=== PATIENT | female | born 1985 | race Hispanic/Latino ===

== ENCOUNTER 2016-12-03 20:02 | Inpatient (IN) | payer MEDICAID ==
[2016-12-03 20:02] VITALS: BMI 41.9
[2016-12-03 20:54] LABS: BASO % 0.3 % (0.0-2.0); CHLORIDE 104 mmol/L (98-107); EOS # 0.3 K/uL (0.0-0.7); EOS % 2.7 % (0.0-4.0); HEMATOCRIT 40.7 % (34.0-47.0); LYMPH # 2.6 K/uL (1.0-4.3); LYMPH % 25.7 % (20.0-40.0); MEAN CELL VOLUME 85.5 fL (81.0-99.0); MEAN CORPUSCULAR HEMOGLOBIN 29.2 pg (27.0-31.0); MEAN CORPUSCULAR HGB CONC 34.1 g/dL (33.0-37.0); MEAN PLATELET VOLUME 10.2 fL (7.2-11.7); MONO # 0.6 K/uL (0.0-0.8); MONO % 5.5 % (0.0-10.0); NRBC % 0.1 % (0.0-2.0); RED CELL DISTRIBUTION WIDTH 13.3 % (11.5-14.5)
[2016-12-03 20:55] LABS: SODIUM 145 mmol/L (132-148)
[2016-12-03 20:56] LABS: POTASSIUM 3.5 mmol/L (3.6-5.2)
[2016-12-03 20:57] LABS: GFR AFRICAN-AMERICAN > 60
[2016-12-03 20:58] LABS: ALB/GLOB RATIO 1.4 (1.0-2.1); ALKALINE PHOSPHATASE 48 U/L (38-126); ALT/SGPT 21 U/L (9-52); AST/SGOT 16 U/L (14-36); BILIRUBIN,TOTAL 0.6 mg/dL (0.2-1.3); BLOOD UREA NITROGEN 10 mg/dL (7-17); CARBON DIOXIDE 22 mmol/L (22-30); GLUCOSE,RANDOM 116 mg/dL (65-105); TOTAL PROTEIN 7.5 g/dL (6.3-8.3)
[2016-12-03 20:59] LABS: ALCOHOL SERUM < 10 mg/dl (0-10); RBC URINE 4 /hpf (0-3); URINE BACTERIA OCC (<OCC); URINE BILIRUBIN NEGATIVE (NEGATIVE); URINE BLOOD NEGATIVE (NEGATIVE); URINE COLOR Amber (YELLOW); URINE GLUCOSE (UA) NORMAL (Normal); URINE KETONE TRACE mg/dL (NEGATIVE); URINE LEUKOCYTE ESTERASE NEG Leu/uL (Negative); URINE PROTEIN 1+ mg/dL (NEGATIVE); URINE UROBILINOGEN NORMAL mg/dL (0.2-1.0); WBC URINE 4 /hpf (0-5)
--- NOTE | 2016-12-03 21:22 | C.PDOC ---
History Of Present Illness A 31 year old female, whose past medical history includes anxiety, bipolar disorder, and hypothyroidism, presents to the emergency department for heroin detox. Time Seen by Provider: 12/03/16 20:20 Chief Complaint (Nursing): Psychiatric Evaluation Past Medical History Vital Signs: Last Vital Signs Temp 98.5 F 12/03/16 22:50 Pulse 77 12/03/16 22:50 Resp 18 12/03/16 22:50 BP 131/81 12/03/16 22:50 Pulse Ox 99 12/03/16 22:50 - Medical History PMH: Anxiety, Bipolar Disorder (according to [facility] report), Hypothyroidism Denies: Depression, Diabetes, Hepatitis, HIV, HTN, Chronic Kidney Disease, Seizures, Sexually Transmitted Disease Surgical History: Appendectomy - [facility] Procedures DRESSING OF WOUND NEC (11/24/99) EXTERNAL EAR INCIS NEC (11/23/99) INJECT/INFUSE NEC (07/06/12) LOCAL EXCIS SM BOWEL NEC (04/19/98) OTHER APPENDECTOMY (04/19/98) OTHER GROUP THERAPY (08/23/13) TETANUS TOXOID ADMINIST (09/02/04) Family History: States: No Known Family Hx - Social History Hx Tobacco Use: No (Hx) Hx Alcohol Use: No Hx Substance Use: Yes - Immunization History Hx Tetanus Toxoid Vaccination: No Hx Influenza Vaccination: No Hx Pneumococcal Vaccination: No ED Course And Treatment - Laboratory Results Result Diagrams: 12/03/16 20:43 12/03/16 20:43 O2 Sat by Pulse Oximetry: 98 Medical Decision Making Medical Decision Making: Treatment Plan: Progress Notes: Disposition Doctor Will See Patient In The: Hospital Counseled Patient/Family Regarding: Studies Performed, Diagnosis - Disposition Disposition: HOSPITALIZED Disposition Time: 22:03 Condition: GOOD - Clinical Impression Clinical Impression: Heroin abuse - Scribe Statement The provider has reviewed the documentation as recorded by the Scribe Honey Mackey All medical record entries made by the Geoffibe were at my direction and personally dictated by me. I have reviewed the chart and agree that the record accurately reflects my personal performance of the history, physical exam, medical decision making, and the department course for this patient. I have also personally directed, reviewed, and agree with the discharge instructions and disposition.
--- NOTE | 2016-12-03 22:00 | C.PDOC ---
Time Seen by Provider: 12/03/16 20:20 Chief Complaint (Nursing): Psychiatric Evaluation Past Medical History Reviewed: Historical Data, Nursing Documentation, Vital Signs Vital Signs: Last Vital Signs Temp 98.5 F 12/03/16 22:50 Pulse 77 12/03/16 22:50 Resp 18 12/03/16 22:50 BP 131/81 12/03/16 22:50 Pulse Ox 98 12/04/16 00:38 - Medical History PMH: Anxiety, Bipolar Disorder ([facility]), Hypothyroidism Denies: Depression, Diabetes, Hepatitis, HIV, HTN, Chronic Kidney Disease, Seizures, Sexually Transmitted Disease Surgical History: Appendectomy - [facility] Procedures DRESSING OF WOUND NEC (11/24/99) EXTERNAL EAR INCIS NEC (11/23/99) INJECT/INFUSE NEC (07/06/12) LOCAL EXCIS SM BOWEL NEC (04/19/98) OTHER APPENDECTOMY (04/19/98) OTHER GROUP THERAPY (08/23/13) TETANUS TOXOID ADMINIST (09/02/04) Family History: States: No Known Family Hx - Social History Hx Tobacco Use: No (Hx) Hx Alcohol Use: No Hx Substance Use: Yes - Immunization History Hx Tetanus Toxoid Vaccination: No Hx Influenza Vaccination: No Hx Pneumococcal Vaccination: No ED Course And Treatment - Laboratory Results Result Diagrams: 12/03/16 20:43 12/03/16 20:43 Lab Interpretation: Abnormal (tox + opiates/cocaine) Urine POC: Negative O2 Sat by Pulse Oximetry: 98 Reevaluation Time: 22:00 Reassessment Condition: Improved Medical Decision Making Medical Decision Making: cocaine/heroine abuse, intranasal, no tract woody. Disposition Doctor Will See Patient In The: Office Counseled Patient/Family Regarding: Studies Performed, Diagnosis - Disposition Disposition: HOSPITALIZED Disposition Time: 22:01 Condition: GOOD - Clinical Impression Clinical Impression: Heroin abuse
--- NOTE | 2016-12-04 05:25 | PCM.BM ---
<Yoli Soler - Last Filed: 12/04/16 05:22> Treatment Plan Problems - Problems identified on initial assessmt Opiate Dependence Date Initiated: 12/04/16 Time Initiated: 05:23 Assessment reference: NA Status: Active Treatment assets and liabiliti Patient Assests: cooperative, ADL independent, physically healthy, negotiates basic needs, good interpersonal skills Patient Liabilities: substance abuse - Milieu Protocol Maintain good personal hygiene: daily Encourage regular showers, daily Remind patient to perform daily oral care, daily Assist patient to perform ADL's Conduct patient checks and document Observation sheet: Q15 minutes Maintain personal safety: every shift Educate patient to report safety concerns to staff, every shift Monitor environment for contraband/sharps Medication safety: Monitor for expected outcome, potential side effects: every shift, Assess barriers to learning: every shift, Assess readiness for medication education: every shift <Ja Min - Last Filed: 12/04/16 18:11> - Diagnosis (1) Opioid use disorder, severe, dependence Status: Acute Interventions: 12/04/16 18:12 * Assess 7x/week regarding severity of withdrawal * Educate regarding risks, benefits, side effects and alternatives of medications * Use Motivational Interviewing for abstinence * Use CBT for relapse prevention * Medication management for withdrawal symptoms * Encourage medication assisted treatment * <Rosmery Seay - Last Filed: 12/05/16 07:20> Family Contact Family involvement: Family/SO is involved Family contact: Patient agrees to contact, Telephone contact initiated by staff - Goals for Treatment Patient goals for treatment: Complete detox and [facility] [place]. Discharge/Continuing Care - Education Needs Education Needs: Patient Medication, Patient Diagnosis/Disease Process, Patient Coping Skills, Patient Anger Management skills, Patient Placement options, Patient Community resources - Discharge Discharge Criteria: No longer exhibiting s/s of withdrawal, Reduction of target symptoms Discharge to:: With Family - Treatment Team Participation Patient/Family/SO Statement: 12/05/16 07:18 "I need to go to [facility] so my meds are settled and I can attend groups." Discussed with Family/SO: No Was Patient/Family/SO present at Treatment Team Meeting: Yes
[2016-12-04] MEDS ORDERED: Buprenorphine Hydrochloride 2 mg SL ONE ×2 (08:55→10:00)
--- NOTE | 2016-12-04 15:54 | PCM.PSYCH ---
Initial Psychiatric Evaluation - Initial Psychiatric Evaluation Type of Admission: Voluntary Legal Status: Capacity Chief Complaint (in patient's own words): "I want to be clean." History of Present Illness and Precipitating Events: The pt. is seen, chart reviewed, and case discussed with staff. Pt. is a 31 y/o female with heroin dependence and presented to detox looking for help. Pt. reports to snorting 8-10 bags of heroin daily for 6 months. Her last use was yesterday at 3PM. Pt. also reports to using marijuana sporadically and started using at age 15. She denies use of alcohol. Pt. reports to using Percocet 8 yrs. ago but denies current usage. Pt. smokes 3-6 cigarettes daily. Pt. reports past history of using Subutex twice before detox. Pt. reports this is her first time in detox. She claims she has been involved with DYFS at [facility] 4 years ago due to her PCP use. She denies current usage of PCP. She denies past history of trauma. Pt. reports to having withdrawal sxs--nausea, body aches, achy bone, runny nose , hot flashes. She has been feeling anxious and sleeping on/off. Past Medical Hx: appendectomy at 15 y/o Family Psych Hx: father is heroin addict; mother has anxiety Legal Hx: denies Social Hx: single; one 8 y/o daughter; unemployed, dependent on welfare; lives with daughter in [place] After care discussed. Pt. reports that after detox she will be going to [facility]. Current Medications: Active Medications Generic Name Dose Route Start Last Admin Trade Name Freq PRN Reason Stop Dose Admin Buprenorphine HCl 6 mg 12/05/16 10:00 Subutex SL 12/08/16 09:59 .TAPER STEPHENIE Taper Clonidine HCl 0.1 mg 12/04/16 04:25 Catapres PO Q8 PRN COWS Score More or Equal to 5 Dicyclomine HCl 10 mg 12/04/16 04:25 Bentyl PO Q6 PRN Muscle spasm Hydroxyzine HCl 25 mg 12/04/16 04:25 Atarax PO Q6 PRN Anxiety Ibuprofen 600 mg 12/04/16 04:25 Motrin Tab PO Q6 PRN Pain, moderate (4-7) Loperamide HCl 2 mg 12/04/16 04:25 Imodium PO Q8 PRN Diarrhea Nicotine 1 patch 12/04/16 13:00 12/04/16 13:10 Nicoderm Cq TD 1 patch DAILY STEPHENIE Administration Ondansetron HCl 4 mg 12/04/16 04:25 Zofran Tab PO Q8H PRN Nausea/Vomiting Pneumococcal Polyvalent Vaccine 0.5 ml 12/07/16 10:00 Pneumovax 23 Vaccine IM 12/07/16 10:01 .ONCE ONE Trazodone HCl 50 mg 12/03/16 22:17 Desyrel PO HS PRN insomnia Past Psychiatric History - Past Psychiatric History Previous Treatment History: None Pertinent Medical Hx (Current Medical&Sleep Prob, Allergies): Allergies Allergy/AdvReac Type Severity Reaction Status Date / Time No Known Allergies Allergy Verified 12/03/16 20:14 No Known Home Med 12/03/16 Review of Systems - Neurological Neurological: UNREMARKABLE - Psychiatric Psychiatric: As Per HPI, Abnormal Sleep Pattern, Anxiety. absent: Hallucinations, Homicidal Ideation, Paranoia, Suicidal Ideation Mental Status Examination - Personal Presentation Personal Presentation: Looks stated age - Affect Affect: Broad - Motor Activity Motor Activity: Calm - Reliability in Providing Information Reliability in Providing Information: Good - Speech Speech: Organized - Mood Mood: Anxious - Formal Thought Process Formal Thought Process: No Impairment - Obsessions/Compulsions Obsessions: No Compulsions: No - Cognitive Functions Orientation: Person, Place, Situation, Time Sensorium: Alert Attention/Concentration: Attentive Abstract Thinking: Phyllis Estimate of Intelligence: Average Judgement: Intact, as evidence by: Insight regarding need for hospitalization Memory: Recent intact, as evidence by: Ability to recall events of the day, Remote intact, as evidenced by: Abilit to recall sig. life events - Risk Risk: Withdrawal, Diminished functioning - Strength & Assets Inventory Strength & Assets Inventory: Family support, Cooperative - Limitations Limitations: Other DSM 5 DX - DSM 5 DSM 5 Diagnosis: Opioid use d/o-severe Opioid withdrawal Tobacco use-mild Cocaine use - moderate - Recommended/Plan of Treatment Treatment Recommendations and Plan of Treatment: Opioid use d/o-severe CBT for relapse prevention Psychoeducation Supportive therapy, individual therapy Use SC for abstinence Opioid withdrawal Support and psychoeducation daily Attend group activities daily Subtutex taper Clonidine 0.1 mg PO Q8 PRN Nicoderm patch for tobacco use Mi for abstinence Cocaine: Gabapentin SC and CBT 32 min Projected ELOS: 4-5 days - Smoking Cessation Smoking Cessation Initiated: Yes
[2016-12-05] MEDS: Buprenorphine Hydrochloride 2 mg SL SCH (09:27)
--- NOTE | 2016-12-05 14:06 | PCM.PYCHPN ---
Psychiatric Progress Note - Psychiatric Progress Note Patient seen today, length of contact: 15 min. Patient Chief Complaint: "Detox is going good." Problems Identified/Issues Discussed: The pt. is seen, chart reviewed, case discussed with staff. Pt. reports she is having some withdrawal sxs. including diarrhea and shakes. Pt. claims to have slept well throughout the night. Support given, CBT and OR used briefly. Pt. is compliant with medications and reports no side-effects. Symptoms are improving but needs more time to stabilize. After care discussed. She plans on going to [facility] after discharge. Medication Change: No Medical Record Reviewed: Yes Mental Status Examination - Cognitive Function Orientation: Person, Place, Situation, Time Memory: Intact Attention: WNL Concentration: WNL Association: WNL Fund of Knowledge: WNL - Mood Mood: Anxious - Affect Affect: Broad - Speech Speech: Appropriate - Formal Thought Process Formal Thought Process: No Impairment - Suicidal Ideation Suicidal Ideation: No - Homicidal Ideation Homicidal Ideation: No Goal/Treatment Plan - Goal/Treatment Plan Need for Continued Stay: Discharge may exacerbated symptoms Progress Toward Problem(s) and Goals/Treatment Plan: Opioid use d/o-severe CBT for relapse prevention Psychoeducation Supportive therapy, individual therapy Use OR for abstinence Opioid withdrawal Support and psychoeducation daily Attend group activities daily Subtutex taper Clonidine 0.1 mg PO Q8 PRN Nicoderm patch for tobacco use OR for abstinence Cocaine: Gabapentin OR and CBT 15 min. Estimated Date of D/C: 12/07/16 - Smoking Cessation Smoking Cessation Initiated: Yes
[2016-12-06] MEDS: Buprenorphine Hydrochloride 2 mg SL SCH (09:11)
--- NOTE | 2016-12-06 12:51 | PCM.PYCHPN ---
Psychiatric Progress Note - Psychiatric Progress Note Patient seen today, length of contact: 15 min. Patient Chief Complaint: "Everything is okay." Problems Identified/Issues Discussed: The pt. is seen, chart reviewed, case discussed with staff. Pt. reports she had some cramps and aches this morning, but after the medication , she feels fine. Pt. reports she slept well throughout the night. Support given, CBT and RI used briefly. Pt. is compliant with medications and reports no side-effects. No new symptoms reported, improving slowly, and needs more time. After care discussed. She is deciding between [facility] or [facility] after discharge. Medication Change: No Medical Record Reviewed: Yes Mental Status Examination - Cognitive Function Orientation: Person, Place, Situation, Time Memory: Intact Attention: WNL Concentration: WNL Association: WNL Fund of Knowledge: WNL - Mood Mood: Neutral - Affect Affect: Broad - Speech Speech: Appropriate - Formal Thought Process Formal Thought Process: No Impairment - Suicidal Ideation Suicidal Ideation: No - Homicidal Ideation Homicidal Ideation: No Goal/Treatment Plan - Goal/Treatment Plan Need for Continued Stay: Discharge may exacerbated symptoms Progress Toward Problem(s) and Goals/Treatment Plan: Opioid use d/o-severe CBT for relapse prevention Psychoeducation Supportive therapy, individual therapy Use RI for abstinence Opioid withdrawal Support and psychoeducation daily Attend group activities daily Subtutex taper Clonidine 0.1 mg PO Q8 PRN Nicoderm patch for tobacco use RI for abstinence Cocaine: Gabapentin RI and CBT 15 min. Estimated Date of D/C: 12/07/16 - Smoking Cessation Smoking Cessation Initiated: Yes
[2016-12-06] MEDS ORDERED: Magnesium Hydroxide Susp 30 ml UD PO ONE (21:05)
[2016-12-07 06:11] VITALS: O2SAT 100
[2016-12-07] MEDS: Buprenorphine Hydrochloride 2 mg SL SCH (09:23)
--- NOTE | 2016-12-07 09:42 | PCM.PYCHDC ---
Mental Status Examination - Mental Status Examination Orientation: Person, Place, Situation, Time Memory: Intact Mood: Neutral Affect: Broad Speech: Appropriate Attention: WNL Concentration: WNL Association: WNL Fund of Knowledge: WNL Formal Thought Process: No Impairment Suicidal Ideation: No Current Homicidal Ideation?: No Discharge Summary - Discharge Note Reason for Hospitalization: Opioid use d/o-severe Opioid withdrawal Cocaine use-moderate Tobacco use-mild Psychiatric History (includes Medical, Family, Personal Hx): Involved w/ DYFS 4 yrs. ago due to PCP; father-heroin, mother-anxiety Consultations:: List each consultation separately and include: 1. Reason for request. 2. Findings. 3. Follow-up Summary of Hospital Course include:: 1. Description of specific treatment plan utilized for patients during their course of treatmen. 2. Summarize the time- course for resolution of acute symptoms and/or regressed behaviors. 3. Describe issues identified and worked on during hospitalization. 4. Describe medication utilized. 5. Describe medical problems identified and treated. 6. Reassessment of suicide risk Summary of Hospital Course: The pt. was admitted and started on treatment with psychotherapy, support, psychoeducation, and medications. ME and CBT used. The pt. attended groups and activities, as well as milieu therapy. All the risks and benefits of medications are discussed and the patient understood and agreed. The pt. improved with the treatments provided. After care discussed with pt. Pt. is open to attending [facility] as soon as she is able to figure out a personal schedule that works for her. - Diagnosis (1) Opioid use disorder, severe, dependence Status: Acute - Final Diagnosis (DSM 5) Condition upon Discharge: STABLE DSM 5: Opioid use d/o-severe Opioid withdrawal Cocaine use-moderate Tobacco use-mild Follow-up Treatment Plan: Continue below medications after discharge. Follow after care plan as discussed. Use relapse prevention skills. Return to ER or call 911 if suicidal, homicidal, or symptoms relapse. Stay away from stress, alcohol, and drugs. See primary doctor once a year. Prescriptions/Medication Reconciliation: traZODone [Desyrel] 50 mg PO HS PRN #30 tab PRN Reason: insomnia - Smoking Cessation Smoking Cessation Medication prescribed: No - Antipsychotic Medications Pt discharged on 2 or more routine antipsychotic medications: No
[2016-12-07] MEDS ORDERED: Pneumococcal 23-Valent Vaccine IM ONE (10:00)
[2016-12-07 10:20] VITALS: BP 107/74; PULSE 64; RESP 20; TEMP 98.2
== END 2016-12-07 09:45 | disposition home or self-care (01) | DRG 745 ==
LOC: C.ER 20:02 → C.7D 22:05
PROVIDERS: ADMIT Psychiatry & Neurology Psychiatry; ATTEND Psychiatry & Neurology Psychiatry
DX: F11.23 Opioid dependence with withdrawal (principal); F31.9 Bipolar disorder, unspecified; E03.9 Hypothyroidism, unspecified; F14.90 Cocaine use, unspecified, uncomplicated; Z72.0 Tobacco use; N95.1 Menopausal and female climacteric states; Z68.36 Body mass index [BMI] 36.0-36.9, adult

== ENCOUNTER 2017-05-08 19:32 | Inpatient (IN) | payer MEDICAID ==
[2017-05-08 19:32] VITALS: BMI 41.9
[2017-05-08 20:39] LABS: SQUAMOUS EPITHIAL 17 /hpf (0-5); URINE BACTERIA RARE (<OCC); URINE BILIRUBIN NEGATIVE (NEGATIVE); URINE BLOOD NEGATIVE (NEGATIVE); URINE CLARITY Hazy (Clear); URINE COLOR Yellow (YELLOW); URINE GLUCOSE (UA) NORMAL (Normal); URINE LEUKOCYTE ESTERASE NEG Leu/uL (Negative); URINE NITRATE NEGATIVE (NEGATIVE); URINE PROTEIN NEGATIVE (NEGATIVE); URINE UROBILINOGEN NORMAL mg/dL (0.2-1.0)
[2017-05-08 20:41] LABS: BASO % 0.2 % (0.0-2.0); EOS # 0.3 K/uL (0.0-0.7); HEMOGLOBIN 14.1 g/dL (11.0-16.0); LYMPH # 2.5 K/uL (1.0-4.3); LYMPH % 17.5 % (20.0-40.0); MEAN CELL VOLUME 86.2 fL (81.0-99.0); MEAN CORPUSCULAR HEMOGLOBIN 29.7 pg (27.0-31.0); MEAN CORPUSCULAR HGB CONC 34.4 g/dL (33.0-37.0); MEAN PLATELET VOLUME 9.7 fL (7.2-11.7); MONO # 0.7 K/uL (0.0-0.8); MONO % 4.7 % (0.0-10.0); NEUT # 10.8 K/uL (1.8-7.0); NEUT % 75.6 % (50.0-75.0); RBC 4.77 Mil/uL (3.80-5.20); RED CELL DISTRIBUTION WIDTH 12.6 % (11.5-14.5); WHITE BLOOD COUNT 14.2 K/uL (4.8-10.8)
[2017-05-08 20:48] LABS: ALB/GLOB RATIO 1.2 (1.0-2.1); ALBUMIN 4.1 g/dL (3.5-5.0); ALT/SGPT 24 U/L (9-52); AST/SGOT 20 U/L (14-36); BLOOD UREA NITROGEN 6 mg/dL (7-17); CALCIUM 9.1 mg/dl (8.6-10.4); GFR AFRICAN-AMERICAN > 60; GFR NON-AFRICAN AMERICAN > 60
[2017-05-08 20:49] LABS: BARBITURATES, UR NEGATIVE (NEGATIVE); BENZODIAZEPINES, UR NEGATIVE (NEGATIVE); PHENCYCLIDINE, UR NEGATIVE (NEGATIVE)
[2017-05-08 21:08] LABS: OPIATES, UR POSITIVE (NEGATIVE)
--- NOTE | 2017-05-08 21:32 | C.PDOC ---
History Of Present Illness 31 y/o female, prescreened, presents to the ER for detox from heroin. Patient states that she uses 4 bags of heroin per day and she last used heroin at 4 pm today. She notes that she has tried detox on her own but she has not been successful. Patient reports that she has an 8 y/o child at home and she is 3 months . Time Seen by Provider: 05/08/17 20:43 Chief Complaint (Nursing): Psychiatric Evaluation History Per: Patient History/Exam Limitations: no limitations Onset/Duration Of Symptoms: Days Current Symptoms Are (Timing): Still Present Severity: Moderate Past Medical History Reviewed: Historical Data, Nursing Documentation, Vital Signs Vital Signs: Last Vital Signs Temp 98.2 F 05/08/17 19:58 Pulse 69 05/08/17 21:51 Resp 18 05/08/17 21:51 BP 106/59 L 05/08/17 21:51 Pulse Ox 99 05/08/17 21:51 - Medical History PMH: Anxiety, Bipolar Disorder (according to [facility] report), Depression, Hypothyroidism Denies: Diabetes, Hepatitis, HIV, HTN, Chronic Kidney Disease, Seizures, Sexually Transmitted Disease Surgical History: Appendectomy - [facility] Procedures DRESSING OF WOUND NEC (11/24/99) EXTERNAL EAR INCIS NEC (11/23/99) INJECT/INFUSE NEC (07/06/12) LOCAL EXCIS SM BOWEL NEC (04/19/98) OTHER APPENDECTOMY (04/19/98) OTHER GROUP THERAPY (08/23/13) TETANUS TOXOID ADMINIST (09/02/04) Family History: States: No Known Family Hx - Social History Hx Tobacco Use: No (Hx) Hx Alcohol Use: No Hx Substance Use: Yes - Immunization History Hx Tetanus Toxoid Vaccination: No Hx Influenza Vaccination: No Hx Pneumococcal Vaccination: No Review Of Systems Constitutional: Negative for: Fever, Chills, Sweats ENT: Negative for: Nose Discharge Cardiovascular: Negative for: Chest Pain, Palpitations Respiratory: Negative for: Shortness of Breath Gastrointestinal: Negative for: Nausea, Vomiting, Abdominal Pain, Diarrhea Genitourinary: Negative for: Vaginal Discharge, Vaginal Bleeding Physical Exam - Physical Exam Appears: No Acute Distress Skin: Normal Color, Warm Head: Atraumatic, Normacephalic Eye(s): bilateral: Normal Inspection Nose: Normal Oral Mucosa: Moist Neck: Supple Chest: Symmetrical Cardiovascular: Rhythm Regular Respiratory: Normal Breath Sounds, No Accessory Muscle Use, No Rales, No Rhonchi , No Wheezing Extremity: Normal ROM Neurological/Psych: Oriented x3, Normal Speech, Normal Motor, Normal Sensation ED Course And Treatment - Laboratory Results Result Diagrams: 05/08/17 20:32 05/08/17 20:32 Lab Interpretation: No Acute Changes (UDS + for opiates, cocaine and marijuana) O2 Sat by Pulse Oximetry: 97 (RA) Pulse Ox Interpretation: Normal Medical Decision Making Medical Decision Making: Plan: --Labs --UDS --UA Disposition - Disposition Disposition: HOSPITALIZED Disposition Time: 00:48 Condition: STABLE - POA Present On Arrival: None - Clinical Impression Clinical Impression: Opiate dependence - Scribe Statement The provider has reviewed the documentation as recorded by the Geoffibe Jeanna Alexandra Provider Attestation: All medical record entries made by the Scribe were at my direction and personally dictated by me. I have reviewed the chart and agree that the record accurately reflects my personal performance of the history, physical exam, medical decision making, and the department course for this patient. I have also personally directed, reviewed, and agree with the discharge instructions and disposition.
--- NOTE | 2017-05-08 23:30 | US ---
EXAM: US , Transvaginal EXAM DATE/TIME: 05/08/2017 9:45 PM CLINICAL HISTORY: 31 years old, female; Signs and symptoms; Lmp or gestational age (in weeks): 02-10-2017; Other: Viability; ; Additional info: ? viability TECHNIQUE: Real-time transvaginal obstetrical ultrasound of the maternal pelvis and a first trimester with image documentation. Transvaginal imaging was used for better evaluation of the fetus and adnexa. COMPARISON: No relevant prior studies available. FINDINGS: The uterus measures 10 x 5 x 5 cm. The cervix measures 3 cm. There is an intrauterine gestational sac containing a yolk sac and pole. Measurements correspond to a gestational age of 8 weeks 4 days. A heart rate of 152 beats per minute was obtained. There is a large 4 x 3 cm heterogeneous hypoechoic lesion in the maternal left ovary with numerous internal septations, an appearance characteristic of hemorrhagic cyst. The maternal right ovary is normal. Color flow and doppler vascular waveforms were demonstrated to both maternal ovaries. IMPRESSION: Single live IUP. Hemorrhagic cyst maternal left ovary. Followup recommended to insure resolution.
--- NOTE | 2017-05-09 01:22 | PCM.BM ---
<Mala Tristan - Last Filed: 05/09/17 01:21> Treatment Plan Problems - Problems identified on initial assessmt Opiates dependence Date Initiated: 05/09/17 Time Initiated: 01:45 Assessment reference: NA Status: Active Treatment assets and liabiliti Patient Assests: cooperative, ADL independent, physically healthy, negotiates basic needs, good interpersonal skills Patient Liabilities: substance abuse - Milieu Protocol Maintain good personal hygiene: daily Encourage regular showers, daily Remind patient to perform daily oral care, daily Assist patient to perform ADL's Maintain personal safety: every shift Educate patient to report safety concerns to staff, every shift Monitor environment for contraband/sharps Medication safety: Monitor for expected outcome, potential side effects: every shift, Assess barriers to learning: every shift, Assess readiness for medication education: every shift <Rosmery Seay - Last Filed: 05/09/17 11:29> Family Contact Family involvement: Family/SO is involved Family contact: Patient agrees to contact - Goals for Treatment Patient goals for treatment: Complete detox and transition to [facility]. Discharge/Continuing Care - Education Needs Education Needs: Patient Medication, Patient Diagnosis/Disease Process, Patient Coping Skills, Patient Anger Management skills, Patient Placement options, Patient Community resources, Patient Other (pre-shani care) - Discharge Discharge Criteria: No longer exhibiting s/s of withdrawal, Reduction of target symptoms Discharge to:: Home, With Family - Treatment Team Participation Patient/Family/SO Statement: 05/09/17 11:30 "I think I'll consider methadone after this..." Discussed with Family/SO: No Was Patient/Family/SO present at Treatment Team Meeting: Yes <Ja Min - Last Filed: 05/09/17 13:39> - Diagnosis (1) Opioid use disorder, severe, dependence Status: Acute Interventions: 05/09/17 13:39 * Assess 7x/week regarding severity of withdrawal * Educate regarding risks, benefits, side effects and alternatives of medications * Use Motivational Interviewing for abstinence * Use CBT for relapse prevention * Medication management for withdrawal symptoms * Encourage medication assisted treatment *
[2017-05-09] MEDS ORDERED: Pneumococcal 23-Valent Vaccine IM ONE (02:56)
--- NOTE | 2017-05-09 08:44 | PCM.PSYCH ---
Initial Psychiatric Evaluation - Initial Psychiatric Evaluation Type of Admission: Voluntary Chief Complaint (in patient's own words): I want to be clean History of Present Illness and Precipitating Events: This is a 31 year old female with heroin dependance and presented to the hospital requesting detox. She unemployed living on welfare. She currently has one 8 year old daughter who resides with her and her boyfriend in an apartment in [place]. She is at risk for eviction and will need to reopen her case to prevent eviction. She was last seen here 11/2016 for heroine detox, cocaine use and tobacco use. She admits to snorting 4 bags of heroine per day since she relapsed 3 months ago. She has been using heroine for a total of 1 year. Her boyfriend also uses heroine, up to 10 bags daily. Last reported cocaine use was during last admission, despite positive UDS on this admission. Admits to social marijuana use, denied any ETOH use. She is currently 8 weeks and she wants to keep the baby. She considering using methadone throughout her due to risk of relapse. All risks of using methadone or other medications during , including using no medications were discussed with the patient who understood and agreed. Past Medical History: Denied Past Psychiatry History: Heroine Dependence, Cocaine Use Disorder, Tobacco Use Disorder, Cannabinoid Use Disorder Family Psych History: father is heroin addict; mother has anxiety Current Medications: Active Medications Generic Name Dose Route Start Last Admin Trade Name Freq PRN Reason Stop Dose Admin Folic Acid 1 mg 05/09/17 10:00 Folic Acid PO DAILY [facility] Multivitamins 1 tab 05/09/17 10:00 Hexavitamin PO DAILY [facility] Ondansetron HCl 4 mg 05/09/17 01:14 Zofran Tab PO Q8H PRN nausea/ vomiting Pneumococcal Polyvalent Vaccine 0.5 ml 05/11/17 10:00 Pneumovax 23 Vaccine IM 05/11/17 10:01 .ONCE ONE Past Psychiatric History - Past Psychiatric History Pertinent Medical Hx (Current Medical&Sleep Prob, Allergies): Allergies Allergy/AdvReac Type Severity Reaction Status Date / Time No Known Allergies Allergy Verified 12/03/16 20:14 traZODone [Desyrel] 50 mg PO HS PRN #30 tab 12/07/16 Review of Systems - Review of Systems All systems: reviewed and no additional remarkable complaints except - Psychiatric Psychiatric: Abnormal Sleep Pattern, Anxiety, Irritability. absent: Auditory Hallucinations, Depression, Hallucinations, Homicidal Ideation, Hopelessness, Visual Hallucinations, Tactile Hallucinations Mental Status Examination - Personal Presentation Personal Presentation: Looks stated age - Affect Affect: Broad - Motor Activity Motor Activity: Calm - Reliability in Providing Information Reliability in Providing Information: Good - Speech Speech: Organized - Mood Mood: Anxious - Formal Thought Process Formal Thought Process: No Impairment - Cognitive Functions Orientation: Person, Place, Situation, Time Judgement: Intact, as evidence by: Insight regarding need for hospitalization Memory: Recent intact, as evidence by: Ability to recall events of the day - Risk Risk: Withdrawal, Diminished functioning DSM 5 DX - DSM 5 DSM 5 Diagnosis: Opioid use d/o-severe Opioid withdrawal Cocaine use - moderate Tobacco use-mild Cannabinoid Use Disorder -moderate - Recommended/Plan of Treatment Treatment Recommendations and Plan of Treatment: Opioid use d/o-severe -CBT for relapse prevention -Psychoeducation -Supportive therapy, individual therapy -Use MS for abstinence Opioid withdrawal -Support and psychoeducation daily -Attend group activities daily -Methadone Taper Tobacco Use Disorder -Encourage Smoking Cessation Cocaine Use Disorder -MS and CBT Cannabinoid Use Disorder -moderate -8week IUP - vitamins started -Encouraged care -All risks of using methadone or other medications during , including using no medications were discussed with the patient who understood and agreed. DILIP Min, Barbara Wilkinson DO, PGY-1
[2017-05-09] MEDS ORDERED: Multiple Vitamins Tab PO SCH (10:00)
[2017-05-09] MEDS ORDERED: Magnesium Hydroxide Susp 30 ml UD PO PRN (18:49)
[2017-05-09] MEDS ORDERED: Magnesium Hydroxide Susp 30 ml UD ONE (20:00)
[2017-05-10] MEDS: Prenatal Multivit/Folic Acid/Iron Tab PO SCH (09:16)
[2017-05-10] MEDS ORDERED: Pneumococcal 23-Valent Vaccine IM ONE (10:00)
--- NOTE | 2017-05-10 11:11 | PCM.PYCHPN ---
Psychiatric Progress Note - Psychiatric Progress Note Patient Chief Complaint: I want to be clean Problems Identified/Issues Discussed: The pt is seen, chart reviewed, case discussed with staff. The pt is compliant with medications and reports no side-effects. Symptoms are improving but needs more time to stabilize. After care discussed, support and psychoeducation given. Mental Status Examination - Cognitive Function Orientation: Person, Place, Situation, Time Attention: WNL Concentration: WNL Association: WNL Fund of Knowledge: WNL - Mood Mood: Anxious - Affect Affect: Broad - Speech Speech: Appropriate - Formal Thought Process Formal Thought Process: No Impairment - Homicidal Ideation Homicidal Ideation: No Goal/Treatment Plan - Goal/Treatment Plan Progress Toward Problem(s) and Goals/Treatment Plan: Opioid use d/o-severe -CBT for relapse prevention -Psychoeducation -Supportive therapy, individual therapy -Use AK for abstinence Opioid withdrawal -Support and psychoeducation daily -Attend group activities daily -Methadone Taper Tobacco Use Disorder -Encourage Smoking Cessation Cocaine Use Disorder -AK and CBT Cannabinoid Use Disorder -moderate -8week IUP - vitamins started -Encouraged care -All risks of using methadone or other medications during , including using no medications were discussed with the patient who understood and agreed. DILIP Min, Barbara Wilkinson DO, PGY-1
[2017-05-11] MEDS: Prenatal Multivit/Folic Acid/Iron Tab PO SCH (09:08)
[2017-05-11] MEDS ORDERED: Pneumococcal 23-Valent Vaccine IM ONE (10:00)
[2017-05-11] MEDS ORDERED: Influenza Vaccine 60 mcg/0.5 mL SYR (4YR UP) IM ONE (10:00)
--- NOTE | 2017-05-11 12:22 | PCM.PYCHPN ---
Psychiatric Progress Note - Psychiatric Progress Note Patient seen today, length of contact: 16 min Patient Chief Complaint: "OK" Problems Identified/Issues Discussed: The pt is seen, chart reviewed, case discussed with staff. Support given, CBT and ME used briefly No new symptoms reported, improving slowly and needs more time No SEs from medications, risks discussed. After care discussed - she wants outpt only. Medication Change: Yes (detox chngs daily) Medical Record Reviewed: Yes Mental Status Examination - Cognitive Function Orientation: Person, Place, Situation, Time Memory: Intact Attention: WNL Concentration: WNL Association: WNL Fund of Knowledge: WNL - Mood Mood: Anxious - Affect Affect: Broad - Speech Speech: Appropriate - Formal Thought Process Formal Thought Process: No Impairment - Suicidal Ideation Suicidal Ideation: No - Homicidal Ideation Homicidal Ideation: No Goal/Treatment Plan - Goal/Treatment Plan Need for Continued Stay: Discharge may exacerbated symptoms, Severe functional impairment Progress Toward Problem(s) and Goals/Treatment Plan: Continue medications Support and psychoeducation daily Attend groups and activities daily After care planning by ODILON
[2017-05-11 21:14] VITALS: RESP 18
[2017-05-12 06:29] VITALS: O2SAT 99
--- NOTE | 2017-05-12 08:34 | PCM.PYCHDC ---
Mental Status Examination - Mental Status Examination Orientation: Person, Place, Situation, Time Discharge Summary - Discharge Note Consultations:: List each consultation separately and include: 1. Reason for request. 2. Findings. 3. Follow-up Summary of Hospital Course include:: 1. Description of specific treatment plan utilized for patients during their course of treatmen. 2. Summarize the time- course for resolution of acute symptoms and/or regressed behaviors. 3. Describe issues identified and worked on during hospitalization. 4. Describe medication utilized. 5. Describe medical problems identified and treated. 6. Reassessment of suicide risk - Diagnosis (1) Opioid use disorder, severe, dependence Current Visit: No Status: Acute - Final Diagnosis (DSM 5) Condition upon Discharge: STABLE Disposition: HOME/ ROUTINE Follow-up Treatment Plan: Continue medications Support and psychoeducation daily Attend groups and activities daily After care planning by ODILON
[2017-05-12] MEDS: Prenatal Multivit/Folic Acid/Iron Tab PO SCH (09:13)
[2017-05-12 10:02] VITALS: BP 113/75; PULSE 76; TEMP 98.2
== END 2017-05-12 10:20 | disposition home or self-care (01) | DRG 886 ==
LOC: C.ER 19:32 → C.7D 05-09 00:49
PROVIDERS: ADMIT Psychiatry & Neurology Psychiatry; ATTEND Psychiatry & Neurology Psychiatry
PROC: HZ52ZZZ Individual Psychotherapy for Substance Abuse Treatment, Cognitive-Behavioral (ICD-10-PCS; principal; 2017-05-09)
PROC: HZ59ZZZ Individual Psychotherapy for Substance Abuse Treatment, Supportive (ICD-10-PCS; 2017-05-09)
PROC: HZ56ZZZ Individual Psychotherapy for Substance Abuse Treatment, Psychoeducation (ICD-10-PCS; 2017-05-09)
PROC: HZ42ZZZ Group Counseling for Substance Abuse Treatment, Cognitive-Behavioral (ICD-10-PCS; 2017-05-09)
PROC: HZ46ZZZ Group Counseling for Substance Abuse Treatment, Psychoeducation (ICD-10-PCS; 2017-05-09)
DX: O99.321 Drug use complicating pregnancy, first trimester (principal); F11.23 Opioid dependence with withdrawal; F14.90 Cocaine use, unspecified, uncomplicated; O99.331 Smoking (tobacco) complicating pregnancy, first trimester; F17.210 Nicotine dependence, cigarettes, uncomplicated; F12.90 Cannabis use, unspecified, uncomplicated; O99.281 Endocrine, nutritional and metabolic diseases complicating pregnancy, first trimester; O99.341 Other mental disorders complicating pregnancy, first trimester; F41.8 Other specified anxiety disorders; F32.9 Major depressive disorder, single episode, unspecified; E03.9 Hypothyroidism, unspecified; Z3A.08 8 weeks gestation of pregnancy